=== PATIENT | female | born 1965 ===

== ENCOUNTER 2017-09-16 12:48 | Inpatient (IN) | payer BC ==
[~2017-09-16] VITALS: Ht 160 cm; Wt 74.4 kg
[~2017-09-16 12:48] MED LIST: LEVE500T22 PO
[2017-09-16 14:50] LABS: Mean Corpuscular Hemoglobin 30.6 pg (28.0-32.0); Mean Corpuscular Hgb Conc. 30.9 g/dL (32.0-36.0); Mean Platelet Volume 8.8 fL (6.9-10.8); Platelet Count (auto) 225 10^3/uL (140-450)
[2017-09-16 15:11] LABS: Albumin 2.2 g/dL (3.4-5.0); BUN/Creatinine Ratio 20.1; Bilirubin, Total 0.8 mg/dL (0.2-1.0); Calcium 9.9 mg/dL (8.5-10.1); Potassium 4.2 mmol/L (3.5-5.1)
[2017-09-16 15:48] LABS: Red Cell Distribution Width 22.7 % (11.8-14.3)
[2017-09-16 15:54] LABS: White Blood Cell 32.1 10^3/uL (4.4-10.8)
[2017-09-16 15:55] LABS: Myelocytes % 0; Promyelocytes % 0; Reactive Lymphocytes 0
[2017-09-16] MEDS ORDERED: SODIUM CHLORIDE 0.9% 1,000 ML IV SCH (16:22)
[2017-09-16] MEDS ORDERED: cefTRIAXone 1GM/10ml IVPUSH 10 ML IV ONE (16:30)
[2017-09-16] MEDS ORDERED: NITROGLYCERIN 0.4 MG SL TAB SL PRN (16:30)
[2017-09-16] MEDS ORDERED: HYDROcodone-ACET 5/325MG TAB PO PRN (16:30)
[2017-09-16] MEDS ORDERED: MORPHINE SULF INJ 2 MG/ML SYRINGE 1ML IV PRN ×2 (16:30)
[2017-09-16] MEDS ORDERED: ONDANSETRON HCL 4 MG/2 ML VIAL IV PRN (16:30)
[2017-09-16] MEDS ORDERED: VANCOMYCIN PER PHARMACY 0 MG IV SCH (16:30)
[2017-09-16] MEDS ORDERED: ALBUTEROL SULF 2.5 MG/0.5ML(0.5%) NEB SOLN NEB PRN (16:30)
[2017-09-16] MEDS ORDERED: LORazepam 2MG/ML-1ML VIAL IV PRN (16:30)
[2017-09-16] MEDS ORDERED: DOCUSATE SOD 100 MG CAP PO PRN (16:30)
[2017-09-16] MEDS ORDERED: TEMAZEPAM 15 MG CAP PO PRN (16:30)
[2017-09-16] MEDS ORDERED: ACETAMINOPHEN 325 MG TAB PO PRN (16:30)
[2017-09-16] MEDS ORDERED: FAMOTIDINE 20 MG TAB PO SCH (16:33)
[2017-09-16 17:55] LABS: Anisocytosis Slight; Metamyelocytes % 1; Platelet Estimate Adequate
[2017-09-16 17:57] LABS: Ovalocytes FEW; Polychromasia Slight; Schistocytes FEW
[2017-09-16] MEDS ORDERED: BOOST PLUS 8 ounce PO SCH (18:00)
[2017-09-16] MEDS ORDERED: VANCOMYCIN 1GM/250ML 250 ML IV SCH (18:00)
[2017-09-16 18:20] LABS: REFLEX LACTIC ACID YES OR NO YES
[2017-09-16] MEDS ORDERED: SUCCINYLCHOLINE CHLORIDE 20 MG/ML 10ML VIAL IV ONE ×2 (18:31→19:00)
[2017-09-16] MEDS ORDERED: ETOMIDATE (2MG/ML) 20ML VIAL IV ONE ×2 (18:31→19:00)
[2017-09-16] MEDS ORDERED: MIDAZOLAM DRIP 100 mg/100mL NS 100 ML IV ONE (18:32)
[2017-09-16 18:55] VITALS: BP 129/66
[2017-09-16] MEDS ORDERED: MIDAZOLAM DRIP 100 mg/100mL NS 100 ML IV SCH ×2 (19:00→19:12)
[2017-09-16] MEDS ORDERED: PROPOFOL 100 ML IV ONE (19:04)
[2017-09-16] MEDS ORDERED: NOREPINEPHRINE 8 MG/250ML KIT 250 ML IV ONE (19:04)
[2017-09-16] MEDS ORDERED: PROPOFOL 100 ML IV SCH ×2 (19:12→19:22)
[2017-09-16 19:26] LABS: Partial Thromboplastin Time 93.4 sec (22.64-33.71)
[2017-09-16 19:27] VITALS: BP 66/31
[2017-09-16] MEDS ORDERED: ACETAMINOPHEN 650 MG RECT SUPP PR PRN (19:30)
[2017-09-16] MEDS ORDERED: FAMOTIDINE (10MG/ML) 2ML VL IV ONE (19:30)
[2017-09-16] MEDS ORDERED: PANTOPRAZOLE 40 MG/10 ML VIAL IV ONE (19:30)
[2017-09-16] MEDS ORDERED: NOREPINEPHRINE 8 MG/250ML KIT 250 ML IV SCH (19:30)
[2017-09-16 19:42] LABS: Allen Test Modified; Base Excess -4.6 mmol/L (-2.0-2.0); Blood 02Sat 68.3 % (96-100); Blood COHb 0.3 % (0.5-1.5); Blood MetHb 0.4 % (0.0-1.5); HCO3 21.1 mmol/L (22-26.0); HHb 31.5 % (0.0-5.0); MODE VENT - A/C; O2Hb 67.8 % (94.0-97.0); PCO2 41.5 mmHg (35.0-45.0); PCO2(T) 41.5 mmHg (35.0-45.0); PO2 43.7 mmHg (80.0-100.0); PO2(T) 43.7 mmHg (80.0-100.0); Room 1028-ERT; Sample Type Arterial; pH 7.324 (7.350-7.450)
[2017-09-16 20:28] LABS: Allen Test Modified; Base Excess -11.4 mmol/L (-2.0-2.0); Blood 02Sat 46.8 % (96-100); Blood COHb 0.3 % (0.5-1.5); Blood MetHb 0.2 % (0.0-1.5); HHb 52.9 % (0.0-5.0); MODE VENT - PCV; O2Hb 46.6 % (94.0-97.0); PIP 27; PO2 39.7 mmHg (80.0-100.0); PO2(T) 39.7 mmHg (80.0-100.0); Room 1028-ERT; Sample Type Arterial; Spont Vt 426
[2017-09-16 20:31] VITALS: BP 85/38
[2017-09-16] MEDS ORDERED: SODIUM BICARBONATE 8.4% INJ 50ML SYRINGE ONE (20:31)
[2017-09-16] MEDS ORDERED: SODIUM BICARBONATE 8.4 % INJ 50ML VIAL IV ONE (20:45)
[2017-09-16] MEDS ORDERED: LEVETIRACETAM INJ 500 MG in SODIUM CHL 0.9% 100 ML IV SCH (22:00)
[2017-09-16] MEDS ORDERED: LEVETIRACETAM 500 MG TAB PO SCH (22:00)
[2017-09-17] MEDS ORDERED: ALBUTEROL SULF 2.5 MG/0.5ML(0.5%) NEB SOLN NEB SCH
[2017-09-17] MEDS ORDERED: cefTRIAXone 1GM/10ml IVPUSH 10 ML IV SCH (09:00)
[2017-09-17] MEDS ORDERED: FAMOTIDINE (10MG/ML) 2ML VL IV SCH (10:00)
[2017-09-17] MEDS ORDERED: MULTIPLE VITAMIN TAB PO SCH (10:00)
[2017-09-17] MEDS ORDERED: PANTOPRAZOLE 40 MG/10 ML VIAL IV SCH (10:00)
== END 2017-09-16 21:41 | disposition expired | DRG 871 ==
LOC: ER 12:51 → TELE 12:52
PROVIDERS: ADMIT Internal Medicine; ATTEND Internal Medicine
PROC: 5A1935Z Respiratory Ventilation, Less than 24 Consecutive Hours (ICD-10-PCS; principal; 2017-09-16)
PROC: 5A12012 Performance of Cardiac Output, Single, Manual (ICD-10-PCS; 2017-09-16)
PROC: 0BH17EZ Insertion of Endotracheal Airway into Trachea, Via Natural or Artificial Opening (ICD-10-PCS; 2017-09-16)
PROC: 30233L1 Transfusion of Nonautologous Fresh Plasma into Peripheral Vein, Percutaneous Approach (ICD-10-PCS; 2017-09-16)
PROC: 30233N1 Transfusion of Nonautologous Red Blood Cells into Peripheral Vein, Percutaneous Approach (ICD-10-PCS; 2017-09-16)
PROC: 30233K1 Transfusion of Nonautologous Frozen Plasma into Peripheral Vein, Percutaneous Approach (ICD-10-PCS; 2017-09-16)
PROC: 05HQ33Z Insertion of Infusion Device into Left External Jugular Vein, Percutaneous Approach (ICD-10-PCS; 2017-09-16)
PROC: 0D9670Z Drainage of Stomach with Drainage Device, Via Natural or Artificial Opening (ICD-10-PCS; 2017-09-16)
DX: A41.9 Sepsis, unspecified organism (principal); E43 Unspecified severe protein-calorie malnutrition; I46.9 Cardiac arrest, cause unspecified; D68.59 Other primary thrombophilia; N18.3 Chronic kidney disease, stage 3 (moderate); I82.431 Acute embolism and thrombosis of right popliteal vein; R04.2 Hemoptysis; I82.441 Acute embolism and thrombosis of right tibial vein; I82.491 Acute embolism and thrombosis of other specified deep vein of right lower extremity; D63.8 Anemia in other chronic diseases classified elsewhere; G40.909 Epilepsy, unspecified, not intractable, without status epilepticus; I12.9 Hypertensive chronic kidney disease with stage 1 through stage 4 chronic kidney disease, or unspecified chronic kidney disease; R79.89 Other specified abnormal findings of blood chemistry; Z85.118 Personal history of other malignant neoplasm of bronchus and lung; Z86.718 Personal history of other venous thrombosis and embolism; Z90.49 Acquired absence of other specified parts of digestive tract; Z68.29 Body mass index [BMI] 29.0-29.9, adult; Z85.841 Personal history of malignant neoplasm of brain
CPT/HCPCS: 36415; 36600; 51702; 71010; 71250; 76604; 80053; 82805; 83605; 85007; 85027; 85610; 85730; 86850; 86900; 86901; 86920; 87040; 92950; 93005; 93971; 94002; 96361; 96365; 96368; 99291; C9113; J0330; J2704; J3490